=== PATIENT | male | born 1995 | race Caucasian/White ===

== ENCOUNTER 2016-11-13 17:00 | Emergency (ER) | payer BC ==
[~2016-11-13] VITALS: Ht 180.3 cm; Wt 77.1 kg
[2016-11-13] MEDS ORDERED: ZITHROMAX250 MG PO (17:11)
[2016-11-13] MEDS ORDERED: TYLENOL325 MG PO (17:12)
[2016-11-13] MEDS ORDERED: ADVIL200 M1 PO (17:13)
[2016-11-13] MEDS ORDERED: ZOFRAN ODT4 MG PO (18:25)
== END 2016-11-13 18:38 | disposition home or self-care (01) ==
LOC: ED 17:00
DX: J02.9 Acute pharyngitis, unspecified (principal); Z79.2 Long term (current) use of antibiotics
CPT/HCPCS: 86308; 99283